=== PATIENT | female | born 1960 | race Caucasian/White ===

== ENCOUNTER → 2016-12-11 | Outpatient (CLI) | payer BC ==
--- NOTE | 2016-12-11 15:07 | REPMRS ---
Patient History The patient states she had a clinical breast exam in 11/2016. Patient is postmenopausal. Family history of prostate cancer in paternal grandfather at age 50 or over and ovarian cancer in maternal grandmother at age 50 or over. Digital Woman Screen Mammo: December 11, 2016 - Exam #: [id number] Bilateral CC and MLO view(s) were taken. Technologist: Anjali Garsia, Technologist Prior study comparison: August 06, 2015, digital woman screen mammo performed at [facility] [employer] [facility]. January 23, 2014, digital woman screen mammo performed at [facility] [employer] [facility]. FINDINGS: There are scattered fibroglandular densities. There has been no change in the appearance of the mammogram from the prior studies. There is a mild amount of residual fibroglandular tissue which is fairly symmetric. There is no interval development of dominant mass, architectural distortion, or clustered microcalcification suggestive of malignancy. ASSESSMENT: BI-RADS/ACR category 1 mammogram. Negative. Recommendation Routine screening mammogram in 1 year (for women over age 40). This mammogram was interpreted with the aid of an FDA-approved computer-aided dectection system. Electronically Signed By: Mil Muñoz MD 12/11/16 [id number]
== END ==
LOC: M WHC 10:06
PROVIDERS: ATTEND Nurse Practitioner Women's Health
DX: Z12.31 Encounter for screening mammogram for malignant neoplasm of breast (principal); Z80.41 Family history of malignant neoplasm of ovary; Z80.42 Family history of malignant neoplasm of prostate

== ENCOUNTER → 2017-12-14 | Outpatient (CLI) | payer BC | LOC: M WHC 10:25 | DX: Z12.31 Encounter for screening mammogram for malignant neoplasm of breast (principal) | CPT/HCPCS: 77067 ==

== ENCOUNTER → 2019-01-14 | Outpatient (CLI) | payer BC ==
--- NOTE | 2019-01-14 12:12 | REP ---
BILATERAL MAMMOGRAM WITH 3D TOMOSYNTHESIS: No family history of breast cancer. [facility] lifetime risk of breast cancer 7.1%. Comparison 12/14/2017 as well as other prior exams. There is mild scattered fibroglandular tissue again seen bilaterally. There is a well circumscribed nodule in the medial left breast anteriorly. This measures about 5 mm in diameter. I see no other mass. There are no clustered microcalcifications. IMPRESSION: BIRADS 0: BI-RADS/ACR category 0 mammogram, Incomplete: Need additional imaging evaluation and/or prior mammograms for comparison. Well circumscribed 5 mm nodule medial left breast anteriorly. Recommend spot compression views and ultrasound to further evaluate. This mammogram was interpreted with the aid of an FDA-approved computer-aided detection system. The patient states he/she had a clinical breast exam in 12/2018. The patient letter being requested is M0.
== END ==
LOC: M WHC 10:34
PROVIDERS: ATTEND Nurse Practitioner Women's Health
DX: Z12.31 Encounter for screening mammogram for malignant neoplasm of breast (principal)

== ENCOUNTER → 2019-01-14 | Outpatient (REF) | payer BC ==
[2019-01-18 14:12] LABS: HPV HYBRID CAPTURE II Negative (Negative)
== END ==
LOC: M SFHCWAGY 11:06
PROVIDERS: ATTEND Nurse Practitioner Women's Health
DX: Z12.4 Encounter for screening for malignant neoplasm of cervix (principal)
CPT/HCPCS: 87624; G0123

== ENCOUNTER → 2019-01-21 | Outpatient (CLI) | payer BC ==
--- NOTE | 2019-01-21 13:04 | REP ---
DIAGNOSTIC MAMMOGRAM WITH OF THE LEFT BREAST WITH LEFT BREAST ULTRASOUND: Multiple spot compression views of the left breast confirm the presence of a well circumscribed round nodule in the upper inner left breast approximately 4 cm from the nipple. This measures 5 mm. Real-time sonographic evaluation of the upper inner left breast demonstrates a cyst 4 mm in diameter corresponding to the mammographic abnormality. This is benign. IMPRESSION: ACR 2 benign. Well circumscribed 5 mm nodule in the upper inner left breast is confirmed by mammography, representing a simple benign cyst by ultrasound. Recommend followup mammogram in one year. BIRADS 2: BI-RADS/ACR category 2 mammogram. Benign Findings. The patient letter being requested is M1. Electronically Signed by Mil Muñoz MD 01/21/2019 01:55 P
== END ==
LOC: M RAD 11:15
PROVIDERS: ATTEND Nurse Practitioner Women's Health
DX: Z12.31 Encounter for screening mammogram for malignant neoplasm of breast (principal)

== ENCOUNTER → 2021-02-01 | Outpatient (REF) | payer BC | LOC: M LAB REF 15:01 | PROVIDERS: ATTEND Surgery | DX: L72.3 Sebaceous cyst (principal) ==